=== PATIENT | female | born 1985 | race Caucasian/White ===

== ENCOUNTER 2016-10-30 15:07 | Emergency (ER) | payer MEDICAID, OTHER ==
[~2016-10-30] VITALS: Wt 60.0 kg
[~2016-10-30 15:07] MED LIST: PREN1TAB49
[2016-10-30] MEDS ORDERED: IBUPROFEN 800 MG TAB PO ONE (15:30)
[2016-10-30] MEDS ORDERED: IBUP-1542 PO (16:14)
--- NOTE | 2016-10-30 16:22 | RADRPT ---
PROCEDURE: XR Chest. CLINICAL INDICATION: Chest pain TECHNIQUE: PA view of the chest was obtained. COMPARISON: None. FINDINGS: The cardiomediastinal silhouette is within normal limits. The lungs are clear. No pleural effusion or pneumothorax is identified. Visualized osseous structures are intact. IMPRESSION: No evidence of active cardiopulmonary disease. RPTAT: GG .Jose Diamond MD, MD Date Time Electronically viewed and signed by .Jose Diamond MD, on 10/30/2016 16:21 .O/
--- NOTE | 2016-10-30 16:22 | ERD ---
ER Documentation Chief Complaint Date/Time DATE: 10/30/16 TIME: 16:20 Chief Complaint l. sided cp rad into back HPI Patient is a 30-year-old female with no medical problems who presents with chest pain. The patient said the chest pain started this morning. The chest pain is left-sided. She feels pain in her back as well. The pain is constant. She has had no treatment as of yet. She denies cough or fever. She does not currently have a primary doctor. ROS All systems reviewed and are negative except as per history of present illness. Medications Home Meds Active Scripts Ibuprofen* (Motrin*) 600 Mg Tab, 600 MG PO Q8, #30 TAB Prov:NESSA MCHUGH MD 10/30/16 Reported Medications Vits W-Ca,Fe,Fa(<1MG) () 1 Tab Tablet 01/27/10 Allergies Allergies: Coded Allergies: No Known Allergies (Verified Allergy, Mild, 01/27/10) PMhx/Soc Medical and Surgical Hx: pt denies Medical Hx, pt denies Surgical Hx History of Surgery: No Anesthesia Reaction: No Hx Neurological Disorder: No Hx Respiratory Disorders: No Hx Cardiac Disorders: No Hx Psychiatric Problems: No Hx Miscellaneous Medical Probl: No Hx Alcohol Use: No Hx Substance Use: No Hx Tobacco Use: No Smoking Status: Never smoker FmHx Family History: diabetes Physical Exam Vitals Vital Signs Date Time Temp Pulse Resp B/P Pulse Ox O2 Delivery O2 Flow Rate FiO2 10/30/16 15:09 98.0 81 20 106/69 98 Physical Exam Const: Mild distress secondary to pain Head: Atraumatic Eyes: Normal Conjunctiva ENT: Normal External Ears, Nose and Mouth. Neck: Full range of motion..~ No meningismus. Resp: Clear to auscultation bilaterally Cardio: Regular rate and rhythm, no murmurs Abd: Soft, non tender, non distended. Normal bowel sounds Skin: No petechiae or rashes Back: No midline or flank tenderness Ext: No cyanosis, or edema Neur: Awake and alert Psych: Normal Mood and Affect Results 24 hrs Current Medications Medications (Trade) Dose Ordered Sig/Debbi Route PRN Reason Start Time Stop Time Status Last Admin Dose Admin Ibuprofen (Motrin) 800 mg ONCE ONCE PO 10/30/16 15:30 10/30/16 15:31 DC 10/30/16 15:35 Procedures/[facility] EKG read by me: Rate/Rhythm: Regular rate and rhythm at a normal rate Intervals: Normal Impression: No evidence of ischemia or arrhythmia Chest X-ray 1V Interpreted by me: Soft Tissue: No acute abnormalities Bones: No acute abnormalities Mediastinum/Cardiac Silhouette/Lungs: No acute abnormalities test is negative. Patient is a 30-year-old female with no medical problems who presents with chest pain. Her PERC score is 0. Chest x-ray and EKG were normal. test was negative. At this point the patient was given ibuprofen for pain and inflammation. I doubt acute coronary syndrome, pneumonia, pneumothorax, pulmonary embolism, or aortic dissection. I believe outpatient management is appropriate. The patient will need to follow-up with the local clinics within 24-48 hours for reevaluation. The patient can return sooner for any worsening symptoms. The patient will be given a prescription for ibuprofen for pain and inflammation reduction. Departure Diagnosis: Primary Impression: Chest pain Chest pain type: unspecified Qualified Code: R07.9 - Chest pain, unspecified type Condition: Fair Patient Instructions: Chest Pain, Uncertain Cause [facility] Usted se albert hecho un examen mdico de control que le indica que no est en opal condicin que requiera tratamiento urgente en el Departamento de Emergencia. Un estudio ms profundo y el tratamiento de bazan condicin pueden esperar sin ningn riesgo hasta que usted sea atendida/o en el consultorio de bazan mdico o opal cl renetta. Es responsabilidad suya arreglar opal skye para el seguimiento del steve. MANEJO DE CONDICIONES NO URGENTES EN EL FUTURO 1) Si usted tiene un mdico de atencin primaria: Usted debera llamar a bazan mdico de atencin primaria antes de venir al departamento de emergencia. Despus de las horas de consultorio, bazan doctor o bazan asociado/a est disponible por telfono. El mdico o enfermero de wild en el servicio telefnico puede asesorarle por brayden medio para atender el problema, o steve contrario se puede programar opal skye. 2) Si usted no tiene un mdico de atencin primaria: Llame al mdico o clnica de referencia que aparece abajo charisma las horas de consultorio para hacer opal skye para que le vean. CLINICAS: [place] [phone] [facility] [phone] [place] [phone] [address] [facility] [phone] [place] [address] [phone] [facility] [phone] [address] Additional Instructions: Llame al doctor MAANA y blank opal SKYE PARA DENTRO DE 1-2 JURADO.Dgale a la secretaria que nosotros le instruimos hacer esta skye.Avise o llame si bazan condicin se empeora antes de la skye. Regresa aqui si peor o no mejor. NESSA MCHUGH MD Oct 30, 2016 16:22
== END 2016-10-30 16:31 | disposition home or self-care (01) ==
LOC: FTE 15:07
DX: R07.9 Chest pain, unspecified (principal)
CPT/HCPCS: 71010; 93005; Z7502; Z7610